=== PATIENT | male | born 1980 | race Caucasian/White ===

== ENCOUNTER 2017-08-11 17:35 | Emergency (ER) | payer OTHER, SELFPAY ==
--- NOTE | 2017-08-11 19:25 | XR_ITS ---
XR knee RT 3V HISTORY: ITS.REASON: KNEE PAIN ORDERING PHYSICIAN: Mary Berrios PATIENT AGE: 37 years COMPARISON: None FINDINGS: No fracture or dislocation. No lytic or blastic change. Normal mineralization. There is minimal spurring along the medial compartment. The joint spaces are well-preserved. No other significant findings IMPRESSION: Minimal spur along the medial compartment suggesting minimal osteoarthritic change
[2017-08-11 19:27] VITALS: BP 137/79; PULSE 85; RESP 18; TEMP 37.3; O2SAT 98; BMI 32.1
--- NOTE | 2017-08-11 19:33 | HMH.EDUTC ---
[facility] [place] Clinical Impression: Knee pain Clinical Impression: (Ruled Out): Knee pain, acute Disposition: Home, Self-Care Condition on Discharge: Good Instructions: How to Use Crutches, DI for Chronic Pain -- Adult, DI for Knee Pain Additional Instructions: *weight bearing as tolerated *RICE, Rest the extremity, Ice 15-20 minutes 3-4 times daily, Compress- wear the getachew wrap as discussed as much as possible to help reduce swelling and pain, Elevate the extremity when at rest *Getachew wrap is for support and help control swelling, use it except in the shower. Be sure that is not to tight but not to loose either *Elevate when resting *Ibuprofen 600-800mg every 6-8 hours as needed for pain an inflammation. If need something more can take Tylenol in between doses of Ibuprofen to help Immediately follow up for new or worsening of symptoms, or no noticeable improvement over the next 3-5 days Prescriptions: Ibuprofen [Ibuprofen 800mg Tab] 800 mg PO Q6HP PRN #20 tab PRN Reason: Moderate Pain Referrals: Robert Rae MD [Primary Care Provider] - Alexander Santos MD [Staff Physician] - Tunde King MD [Physician] - Time of Disposition: 20:08 Medical Decision Making Vital Signs: 08/11/17 19:27 Temperature 99.2 F Temperature Source Temporal Artery Scan Pulse Rate [Left Brachial] 85 Respiratory Rate 18 Blood Pressure [Left Arm] 137/79 Blood Pressure Mean [Left Arm] 98 Blood Pressure Source [Left Arm] Automatic Cuff Blood Pressure Position [Left Arm] Sitting 02 Sat by Pulse Oximetry 98 Oxygen Delivery Method Room Air Orders (Tests/Meds): ORDERS Category Date Time Status Knee XR right 3 views [XR knee RT 3V] Stat Exams 08/11/17 19:25 Taken - Radiology Data #1 Image Reviewed: Yes I reviewed the patient's radiology image Preliminary Findings: No Fracture Seen no fracture seen will have patient follow up with family doctor/orthopedics tomorrow - Myke Inquiry Pt receiving controlled substance: No Myke was queried for this patient: No [facility] [place] - General Stated complaint: PAIN RIGHT KNEE Mode of Arrival: Ambulatory Source of Information: Patient Limitations: No Limitations Description of Symptoms (Recalled from Triage Doc. 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 and he felt something pop and he began to have pain and swelling in the right knee States that pain has continued to get worse so he thought he better come in and get an xray - Related Data Previous Rx's Medication Instructions Recorded Ibuprofen [Ibuprofen 800mg Tab] 800 mg PO Q6HP PRN #20 tab 08/11/17 Allergies Allergy/AdvReac Type Severity Reaction Status Date / Time cephalexin [CEPHALEXIN] Allergy Mild Unverified 07/20/17 14:38 penicillin G [PENICILLIN G] Allergy Mild Unverified 07/20/17 14:38 ranitidine [RANITIDINE] Allergy Unknown Unverified 07/20/17 14:38 - Worker's Comp Is this a Worker's Comp case?: No [facility] History I have reviewed the patient's past medical history: Yes Medical History: Denies:: Cancer, Diabetes Mellitus Type 1, Diabetes Mellitus Type 2, MRSA Amputation: No Fractures: No - *Social History Smoking Status: Current every day smoker Tobacco Type: cigarettes Alcohol Intake: never - Psychiatric History Expresses thoughts of harming self/others: None Suicide Plan Description: No Plan ROS Obtained: Yes All systems reviewed & no additional complaints - Musculoskeletal Musculoskeletal: Reports other (Pain and swe
== END 2017-08-11 20:23 | disposition home or self-care (01) ==
PROVIDERS: Emergency Provider Nurse Practitioner; Family Provider Emergency Medicine; PCP Emergency Medicine
DX: M25.561 Pain in right knee (principal); X50.0XXA Overexertion from strenuous movement or load, initial encounter; F17.210 Nicotine dependence, cigarettes, uncomplicated; Z88.0 Allergy status to penicillin; Z88.8 Allergy status to other drugs, medicaments and biological substances
CPT/HCPCS: 73562; 99202; 99282

== ENCOUNTER 2020-05-06 12:56 | Emergency (ER) | payer BC, SELFPAY ==
--- NOTE | 2020-05-06 14:08 | XR_ITS ---
PROCEDURE: XR FOOT RT MIN 3V CLINICAL INDICATION: INJURY Pain COMPARISON: No exams were available for comparison FINDINGS: No fracture or dislocation. No lytic or blastic change. There is normal mineralization. There is spurring along neck of the talus and at the distal tibia Other findings:None. IMPRESSION: No acute findings. Dictated by: Paul Pearson MD 05/06/2020 14:30 Paul Pearson MD in [place] 05/06/2020 14:30
--- NOTE | 2020-05-06 14:22 | XR_ITS ---
PROCEDURE: XR ANKLE RT MIN 3V CLINICAL INDICATION: INJURY PAIN LAT SIDE OF FOOT AND ANKLE Pain COMPARISON: CR XR FOOT RT MIN 3V from 05/06/2020 FINDINGS: No fracture or dislocation. No lytic or blastic change. There is normal mineralization. There is an area of exostosis at the neck of the talus with bony spurring also at the anterior distal tibia. Other findings:None. IMPRESSION: No acute findings. Dictated by: Paul Pearson MD 05/06/2020 14:43 Paul Pearson MD in [place] 05/06/2020 14:43
[2020-05-06 14:33] VITALS: BP 141/74; PULSE 74; RESP 14; TEMP 36.9; O2SAT 98; BMI 42.1
--- NOTE | 2020-05-06 14:33 | HMH.EDUTC ---
[facility] [place] Disposition Clinical Impression: Ankle pain Qualifiers: Chronicity: acute Laterality: right Qualified Code(s): M25.571 - Pain in right ankle and joints of right foot Disposition: Home, Self-Care Condition on Discharge: Good Instructions: Tendinopathy, DI for Ankle Pain Additional Instructions: Rest the extremity, Wear the jluis wrap for compression, Elevate the extremity as tolerated while you are resting. Take ibuprofen for pain. I sent in a prescription to your pharmacy. Follow up with Dr. Louie. I put in a referral but you need to call her office and schedule an appointment. Follow up with your regular doctor. GO TO THE ER FOR ANY WORSENING SYMPTOMS Prescriptions: Ibuprofen [Ibuprofen 600mg Tablet] 600 mg PO Q6HP PRN #30 tab PRN Reason: Mild Pain Transmission Status: Received by [facility] Referrals: Robert Rae MD [Primary Care Provider] - Erika Louie DPM [Staff Physician] - Forms: Work/School Release Time of Disposition: 14:44 Medical Decision Making - Medical Records Medical records reviewed: No: I reviewed the patient's medical records. - Myke Inquiry Pt receiving controlled substance: No Vital Signs: 05/06/20 14:33 05/06/20 14:52 Temperature 98.4 F 98.4 F Temperature Source Oral Pulse Rate 74 Pulse Rate [Right Brachial] 74 Respiratory Rate 14 14 Blood Pressure 141/74 H Blood Pressure [Right Arm] 141/74 H Blood Pressure Mean [Right Arm] 96 Blood Pressure Source [Right Arm] Automatic Cuff Blood Pressure Position [Right Arm] Sitting 02 Sat by Pulse Oximetry 98 Oxygen Delivery Method Room Air - Lab Data Lab results reviewed: Yes: I reviewed the patient's lab results. [facility] [place] HPI - General Stated complaint: AO [id number] right ankle pain,home accident Time Seen by Provider: 05/06/20 14:15 - History of Present Illness Provider Complaint: He states that he twisted his ankle about a month ago and its still painful and sore when he is walking on it. - Related Data Previous Rx's Medication Instructions Recorded Ibuprofen [Ibuprofen 600mg 600 mg PO Q6HP PRN #30 tab 05/06/20 Tablet] Allergies Allergy/AdvReac Type Severity Reaction Status Date / Time cephalexin [CEPHALEXIN] Allergy Mild Verified 05/07/20 10:12 penicillin G [PENICILLIN G] Allergy Mild Verified 05/07/20 10:12 ranitidine [RANITIDINE] Allergy Unknown Verified 05/07/20 10:12 acetaminophen [From Percocet] Allergy Verified 05/07/20 10:12 amoxicillin Allergy Verified 05/07/20 10:12 oxycodone [From Percocet] Allergy Verified 05/07/20 10:12 [facility] History - Hepatitis A Screen Attestation statement:: This patient has been screened for Hepatitis A risk factors. I have reviewed the patient's past medical history: Yes Medical History: Denies:: Cancer, Diabetes Mellitus Type 1, Diabetes Mellitus Type 2, Internal Pacemaker, MRSA Other Surgeries: No: Pacemaker Amputation: No Fractures: No - Social History Smoking Status: Current every day smoker Tobacco Type: cigarettes # Packs/Day (cigarettes): 1 Alcohol Intake: never Alcohol Intake Frequency:: holidays/special occasions only Occupational Status: other Housing: house Household Members: spouse ROS Obtained: Yes All systems reviewed & no additional complaints - Musculoskeletal Musculoskeletal: Reports as per HPI - Integumentary/Breasts Skin/Breast: Denies redness, Denies rash, Denies wounds Physical Exam - General General appearance: alert, in no apparent distress - Head Head exam: atraumatic, normocephalic, normal inspection - Eye Eye exam: Present: normal appearance, PERRL, EOMI - ENT ENT exam: Present: normal exam, normal oropharynx, mucous membranes moist, TM's normal bilaterally, normal external ear exam - Neck Neck exam: Present: normal inspection, full ROM, trachea midline. Absent: meningismus, lymphadenopathy - Chest Chest inspection: Present: normal inspection, s
[2020-05-06 14:52] VITALS: BP 141/74; PULSE 74; RESP 14; TEMP 36.9; O2SAT 98
== END 2020-05-06 14:56 | disposition home or self-care (01) ==
PROVIDERS: Emergency Provider Nurse Practitioner Family; PCP Emergency Medicine
DX: M25.571 Pain in right ankle and joints of right foot (principal); X50.1XXA Overexertion from prolonged static or awkward postures, initial encounter; Y92.019 Unspecified place in single-family (private) house as the place of occurrence of the external cause; Z88.0 Allergy status to penicillin; F17.210 Nicotine dependence, cigarettes, uncomplicated
CPT/HCPCS: 73610; 73630; 99201

== ENCOUNTER → 2020-05-14 09:07 | Outpatient (CLI) | payer BC, SELFPAY ==
--- NOTE | 2020-05-14 09:07 | MR_ITS ---
PROCEDURE: MR ANKLE RT WO/W CON CLINICAL INDICATION: foot pain, ankle pain/strain [id number] AGO TWISTED ANKLE. LATERAL SIDED ANKLE PAIN WITH SWELLING. PAIN WITH FLEXION AND EXTESION. 20ML PROHANCE GIVEN. LOT:[id number] EXP: JUL 2022 > PRIOR X-RAY 05-06-20 COMPARISON: CR XR ANKLE RT MIN 3V from 05/06/2020 TECHNIQUE: Routine multiplanar multi echo sequences are performed without gadolinium enhancement. FINDINGS: The distal aspect the syndesmosis of the tibia/fibula appears intact. The anterior tibiofibular ligament is thinned with increased T2 signal around the ligament suggesting sprain or partial tear. Posterior tibiofibular ligament appears intact. The ATFL is not identified in its entirety consistent with tear of the ATFL. The PT FL has an unremarkable appearance. There is increased T2 signal involving the medial aspect of the talus at the neck of the talus. There is some heterogeneous increased signal intensity of the deltoid ligament suggesting a partial tear or sprain. Unfortunately, the sagittal PD images demonstrates a moderate amount of motion artifact. There is increased T2 signal involving the distal aspect of the peroneal longus tendon at the level of the distal calcaneus with some fluid around the tendon at this region. Tendinopathy//tendinitis or partial tear is considered. The posterior tibialis, flexor hallucis longus, and flexor digitorum longus and Achilles tendon have an unremarkable appearance. The anterior extensor tendons are grossly unremarkable with moderate degree of motion artifact involving them on the sagittal images. There is a prominent os trigonum with fluid around the os trigonum. No edema however of this ossicle is evident. There is a small ankle joint effusion. IMPRESSION: 1. Tear of the ATFL. 2. Partial tear versus sprain of the anterior tibiofibular ligament and deltoid ligament 3. Increased T2 signal of the peroneus longus tendon distally which may be due to tendinopathy/tendinosis/tendinitis versus partial tear 4. Bone marrow edema of the neck of the talus with small ankle joint effusion. 5. There is fluid around a prominent os trigonum but no edema of the os trigonum. Bursitis here is considered. Dictated by: Paul Pearson MD 05/20/2020 09:21 Paul Pearson MD in [place] 05/20/2020 09:21
== END ==
PROVIDERS: PCP Emergency Medicine; Visit Provider Podiatrist
DX: S92.131A Displaced fracture of posterior process of right talus, initial encounter for closed fracture (principal); S93.401A Sprain of unspecified ligament of right ankle, initial encounter; M25.371 Other instability, right ankle
CPT/HCPCS: 73723; A9576

== ENCOUNTER → 2020-05-23 11:57 | Outpatient (CLI) | payer BC, SELFPAY ==
--- NOTE | 2020-05-23 12:12 | XR_ITS ---
PROCEDURE: XR CHEST 2V CLINICAL HISTORY: COUGH,PREOPERATIVE COMPARISON: No exams were available for comparison FINDINGS: The cardiomediastinal silhouette and pulmonary vascularity are within normal limits. The lungs are clear without infiltrates, suspicious nodules, or pleural effusions. Calcified granuloma right lung base medially. No acute bony findings. IMPRESSION: No acute findings. Dictated by: Paul Pearson MD 05/23/2020 14:26 Paul Pearson MD in [place] 05/23/2020 14:26
[2020-05-23 12:16] LABS: Basophils % 0.3 % (0.1-2.0); Eosinophils # 0.2 K/mm3 (0.0-0.4); Eosinophils % 1.7 % (0.1-12.0); Hematocrit 51.9 % (42.0-52.0); Hemoglobin 17.3 g/dL (14.1-18.0); Lymphocytes # 2.3 K/mm3 (0.7-4.5); Lymphocytes % 26.4 % (10-50); Mean Corpuscular HGB Conc 33.4 g/dL (31.8-35.4); Mean Platelet Volume 7.8 fl (7.4-10.4); Monocytes # 0.5 K/mm3 (0.1-1.0); Monocytes % 5.5 % (1.7-9.3); Neutrophils # 5.6 K/mm3 (1.8-7.8); Platelet Count 335 K/mm3 (142-424); Red Blood Count 5.96 M/mm3 (4.60-6.20); Red Cell Distribution Width 12.9 % (11.5-17.5); White Blood Count 8.6 K/mm3 (4.8-10.8)
[2020-05-23 13:50] LABS: Chloride 103 mmol/L (98-107); Potassium 3.8 mmoL/L (3.5-5.1); Sodium 140 mmol/L (136-145)
[2020-05-23 13:52] LABS: Alanine Aminotransferase 52 U/L (12-78); Alkaline Phosphatase 72 U/L (38-126); Anion Gap 13.8 mEq/L (5-15); Aspartate Amino Transferase 32 U/L (17-59); Bilirubin,Total 0.9 mg/dl (0.2-1.3); Blood Urea Nitrogen 12 mg/dl (9-20); Carbon Dioxide 27 mmol/L (22.0-30.0); Estimated Glomerular Filt Rate 94 ml/min (>60); GFR (African American) 114 ML/MIN (>60)
[2020-05-23 13:53] LABS: Albumin Level 4.8 g/dl (3.5-5.0); Calcium 9.4 mg/dl (8.4-10.2); Globulin 2.4 g/dL (1.3-3.2); Glucose 133 mg/dl (74-100); Total Protein,Serum 7.2 g/dl (6.3-8.2)
--- NOTE | 2020-05-23 15:03 | ECG_ITS ---
APPROVED REPORT Exam: Resting ECG HR:75 bpm ECG Measurements Heart Rate 75 AXES UT 126 P 31 QRSd 90 QRS -30 QT 378 T 53 QTc 422 Conclusion Normal sinus rhythm Left axis deviation Abnormal ECG Electronically signed by : Delfin Le, 05/24/2020 14:33:40
[2020-05-24 13:38] LABS: Hemoglobin A1C 4.5 % (4.0-6.0)
== END ==
PROVIDERS: Visit Provider Podiatrist
DX: Z01.818 Encounter for other preprocedural examination (principal); M79.671 Pain in right foot
CPT/HCPCS: 36415; 71046; 80053; 83036; 85025; 93005

== ENCOUNTER → 2020-05-27 11:31 | Outpatient (CLI) | payer BC, SELFPAY ==
[2020-05-27 13:22] LABS: Coronavirus 19 IgG Antibody Negative (Negative); Coronavirus 19 IgM Antibody Negative (Negative)
[2020-05-27 14:06] LABS: Hemoglobin A1C 4.5 % (4.0-6.0)
[2020-06-28 18:08] LABS: Cotinine 324.6; Nicotine 27.7
== END ==
PROVIDERS: Podiatrist; Visit Provider Nurse Practitioner Family
DX: Z01.818 Encounter for other preprocedural examination (principal); R73.09 Other abnormal glucose; M25.571 Pain in right ankle and joints of right foot
CPT/HCPCS: 36415; 80323; 83036; 86328

== ENCOUNTER 2020-05-29 06:00 | Day surgery (SDC) | payer BC, SELFPAY ==
[2020-05-27 15:40] VITALS: BMI 30.2
[2020-05-29] VITALS (16 sets, daily range): BP systolic 142–186; BP diastolic 80–103; PULSE 66–79; RESP 12–26; TEMP 36.4–36.8; O2SAT 93–100
--- NOTE | 2020-05-29 07:13 | HMH.OPNOTE ---
Date of procedure: 05/29/20 Pre-op Diagnosis:: 1. Right peroneal tendon tear 2. Right ankle instability 3. Closed arredondo's fracture of right foot 4. Right deltoid ligament tear 5. Right high ankle sprain, syndemosis sprain 6. Right ankle ATFL tear 7. Right ankle synovitis 8. Right talus OCD Post-op Diagnosis:: Same Procedure performed:: 1. Right peroneus brevis tendon debridement and repair 2. Right peroneus longus tendon debridement and repair 3. Right medial arthrotomy, with direct open repair deltoid ligament 4. Right repair anterior talofibular ligament (modified Brostrum ligament stabilization) 5. Right syndesmosis open reduction internal fixation 6. Right ankle synovectomy 7. Right microfracture/chondral drill talus OCD 8. Application of graft 9. Application of posterior splint Surgeon:: Erika Louie DPM Clock Smith(s):: Monserrat Arredondo FILING WRITER:: Delfin Reddy Anesthesia: GETA, regional (right popliteal block) Estimated blood loss (mL): 20 Clinical Note:: The patient has tried conservative care including: ice, elevation, modification of shoe gear, modification of activity, [id number] ankle brace, bracing/strapping, Getachew bandage, stretching/therapy. Patient unable to tolerate more physical therapy due to pain and guarding. Patient unable to fully tolerate a full physical exam secondary to pain and guarding. Symptoms are not improving and have worsened over the last few weeks/months. 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 He states there is no light duty option . After a long discussion with the patient in regards to the conservative versus surgical treatment for the tendon tear/deformity, the patient has elected to proceed with surgery because they have failed conservative treatment and continue to have pain and worsening symptoms affecting daily activities. The patient has been instructed on the planned procedure, all risk versus benefits of the procedure discussed. These include but are not limited to: bleeding, infection, nerve and blood vessel damage, need for further surgery, delay in healing of soft tissue or bone, tendon re-rupture, failure of bones to heal, non-union, mal-union, failure of the implant, prolonged pain and recovery, CPRS/RSD, DVT and anesthetic complications. No guarantees were given. All questions fully answered. The patient verbalized understanding and agreed to proceed with surgery. Written consent was obtained. We discussed how smoking can affect healing postoperatively. Recommend smoking cessation, see below. Discussed DVT prophylaxis, patient is lower risk. Due to immobilization would recommend aspirin 81 mg postoperatively while immobilized. Necessary labs and pre-op testing ordered: CBC, CMP, EKG, CXR. Will need Covid test. Medical clearance. PCP is Dr. Rae. Patient has crutches. Recommend RKS. e-Rx for [place] 7.5mg # 30, Zofran, Motrin given. Operative findings:: Right ankle synovitis noted with ankle instability. There was a partial tear of the deltoid ligament. There was an osteochondral defect noted to the medial talar dome. Fluid in the subtalar joint, ankle joint and around the peroneal tendons. Syndesmosis instability. Complete tear of the anterior talofibular ligament. CFL attenuated but intact. Peroneus brevis low-lying muscle belly with flattening and longitudinal tear of the brevis. Peroneus longus had a thick bulbous area inferior to the lateral malleolus consistent with old injury, synovitis. Operative note:: On this date and time patient was deemed an appropriate surgical candidate. Pre-op regional popliteal and saphenous nerve block performed by anesthesia. With informed consent signed, the patient was taken to the operating theater. The patient was positioned supine. General anesthesia was induced. Tourniquet was applied to the right thigh. The right lower extr
--- NOTE | 2020-05-29 09:17 | XR_ITS ---
PROCEDURE: XR ANKLE RT 2V CLINICAL INDICATION: TENDON REPAIR IN OR COMPARISON: No exams were available for comparison FINDINGS: Fluoro time: 29 seconds. Two images are submitted status post syndesmotic repair of the distal tib fib with fibular bone plate, tibial button, and lateral malleolar anchor screw. IMPRESSION: Good alignment status post syndesmotic repair Dictated by: aPul Pearson MD 05/29/2020 11:55 Paul Pearson MD in [place] 05/29/2020 11:55
--- NOTE | 2020-05-29 10:09 | P.PN_ITS ---
[facility] Anesthesia Checklist - Patient Identification Patient Identification: Arm Band, Verbal (Name & ) - Structural Data Admitted From: Home Planned Operative Procedure/s: ita Consent for Planned Operative Procedure(s) Verified: Yes Verified Documents: History and Physical - NPO Status Verified Time NPO: 00:00 - Chart Verification Results Verified: CBC, BMP - Additional verifications Patient : No Anesthesia Reactions: No Hx Blood Transfusions: No Blood Transfusion Reaction: No Cephalosporin Allergy: No Previous Colonoscopy: No - Cardiovascular Assessment Heart Sounds: S1 & S2 Pulse Strength: Baseline Pulse Rhythm: Regular Peripheral Edema: No - Airway Assessment C-Spine Mobility Assessed: Yes TMJ Mobility Assessed: Yes Dentition: Good Dentition - Neurological Assessment Level of Consciousness: Awake, Alert, Appropriate Hx Seizures: No Numbness or tingling in extremities: No - Anesthesia Plan Anesthesia Risk discussed: Yes ASA Class: II Anesthesia Type: General w/block [facility] History I have reviewed the patient's past medical history: Yes Medical History: Reports:: Gastroesophageal Reflux Disease(GERD) Denies:: Cancer, Diabetes Mellitus Type 1, Diabetes Mellitus Type 2, Internal Pacemaker, MRSA, Seizures *Have you ever received a pneumonia vaccine?: No *Have you received a flu vaccine this season?: No Other Medical History: Reports: Sinus Problems. Denies: Blood Transfusion Reaction Anesthesia experience/problems:: none Laterality Cases: Right: Arthroscopy Shoulder Other Surgeries: Yes: No Previous Surgery. No: Pacemaker Amputation: No Fractures: Yes (R ankle) - *Social History Last grade of school completed: High school graduate Smoking Status: Current every day smoker Tobacco Type: cigarettes # Packs/Day (cigarettes): 1 Alcohol Intake: current Alcohol Intake Frequency:: holidays/special occasions only Substance Use Type: denies use *Occupational Status:: employed Housing: house Household Members: spouse, family *Travel in the last 8 weeks: None Family Hx:: Diabetes, Cancer, Hypertension, Hyperlipidemia, Asthma
--- NOTE | 2020-05-29 10:11 | P.PN_ITS ---
[facility] Anesthesia Record Part I Intake, IV Amount: 1,200 Estimated blood loss (mL): 10 Urine output (mL): 0 Blood Products used (#): none Blood Pressure: 148/93 SaO2: 93 Pulse Rate: 72 Respiratory Rate: 18 Temperature: 97.5 F Patient is:: Drowsy, Mask O2, Stable Stable to PACU at:: 10:07
--- NOTE | 2020-05-29 10:30 | XR_ITS ---
PROCEDURE: XR ANKLE RT MIN 3V CLINICAL INDICATION: Post op ankle stabilization COMPARISON: CR XR ANKLE RT MIN 3V from 05/06/2020 MR MR ANKLE RT WO/W CON from 05/14/2020 FINDINGS: There postsurgical changes with syndesmotic repair with a bone plate at the distal fibula translucent fixator into the distal tibia with a metallic button medially at the distal tibia. Small anchor screws present at the distal fibula. There is good alignment. Posterior splint is in place. There is an extra ossicle along the talar neck anteriorly as well as a prominent os trigonum. IMPRESSION: Good alignment status post syndesmotic repair Dictated by: Paul Pearson MD 05/29/2020 11:55 Paul Pearson MD in [place] 05/29/2020 11:55
--- NOTE | 2020-05-29 15:23 | HMH.ANESII ---
[facility] Anesthesia Record Part II Discharge Time: 10:37 Destination: Surgical Day Care (OP Surgery) PACU nurse assessment reviewed?: Yes Patient Condition:: Good Anesthesia Complications:: None Swallowing reflex intact?: Yes Cyanosis?: No Blood Pressure: 155/86 Pulse Rate: 77 Temperature: 98.3 F Mental Status: Alert & Oriented Pain level:: 0 Nausea and/or vomitting:: None Intake, IV Amount: 50
== END 2020-05-29 12:04 | disposition home or self-care (01) ==
LOC: OR 06:01
PROVIDERS: PCP Nurse Practitioner Family; Visit Provider Podiatrist
PROC: (CPT 27695; principal; 2020-05-29 07:30)
DX: S86.311A Strain of muscle(s) and tendon(s) of peroneal muscle group at lower leg level, right leg, initial encounter (principal); M25.371 Other instability, right ankle; S93.491A Sprain of other ligament of right ankle, initial encounter; S92.144A Nondisplaced dome fracture of right talus, initial encounter for closed fracture; Z88.0 Allergy status to penicillin; Z88.8 Allergy status to other drugs, medicaments and biological substances; Z79.899 Other long term (current) drug therapy
CPT/HCPCS: 27695; 27625; C5271; 73600; 73610; 76000; 96374; C1713; C1762; C1776; J2405; Q4211

== ENCOUNTER 2020-09-26 15:30 | Outpatient (RCR) | payer BC, SELFPAY ==
--- NOTE | 2020-07-24 11:15 | HMH.PTOPEV ---
PT Outpatient Evaluation Rehab PT Outpatient Evaluation Start: 07/24/20 11:04 Freq: Status: Active Protocol: Document 07/24/20 11:04 KALPANA (Rec: 07/24/20 11:15 KALPANA [id number]) Electronically Signed By Juma Rogers, PT 07/24/20 11:04 Outpatient Therapy Subjective History Subjective History Pt presents s/p R ankle peroneal tendon repair on . Pt reports h/o R ankle instability w/severe sprain in . Pt reports improved R ankle instability since sx, however, reports lingering post-op stiffness, swelling, weakness, and some N &T in toes. Chief Complaint Pain,Stiff,Swelling, Paresthesia,Weakness Symptom Type Ache,Dull,Numbness,Tingling Symptoms Relieved By Rest/Positioning,Heat,Ice Symptoms Aggravated By Standing,Physical Activity, Walking Prior Functional Limitations Housework,Standing,Walking, Stairs Current Functional Limitations Housework,Walking,Stairs Symptom Description Constant but Variable Level of pain today (0-10) 1 Pain scale - at its best (0-10) 1 Pain scale - at its worst (0-10) 5 Ankle/Foot Eval Gait Observation General Gait Pattern Observation Antalgic Gait,Wide Based Gait, Decrease Weight Bear (R) Assistive Device Ambulation Assistive Device Axillary Crutches Palpation Tenderness right Ankle/Foot Palpation Findings Tenderness Ankle/Foot Palpation Overall Comment 2-3/4 peroneal incision ROM Ankle/Foot Dorsiflexion w/Knee Extended 0 Active Range Motion (degrees) Ankle/Foot Plantar Flexion Active Range 0-38 of Motion (degrees) Ankle/Foot Eversion Active Range of 0-10 Motion (degrees) Ankle/Foot Inversion Active Range of 0-35 Motion (degrees) Ankle/Foot ROM Limitations Soft Tissue Tightness,Muscle Weakness MMT Ankle Dorsiflexion Strength Grade 4- Good- Ankle Plantarflexion Strength Grade 4- Good- Foot Eversion Strength Grade 3+ Fair+ Foot Inversion Strength Grade 3+ Fair+ Outpatient Therapy Assessment Impairments Problems/Impairmments Palpation Tenderness,Impaired Range of Motion,Impaired Strength,Impaired Gait Pattern ,Impaired Walking,Impaired Standing,Impaired Household Care,Impaired Stair Climbing, Impaired Work Act
--- NOTE | 2020-08-28 16:15 | HMH.RHREAS ---
Rehab Reassessment Rehab OP Re-assessment Start: 08/28/20 15:09 Freq: Status: Active Protocol: Document 08/28/20 15:09 KALPANA (Rec: 08/28/20 16:15 KALPANA [id number]) Electronically Signed By Juma Rogers, PT 08/28/20 15:09 Rehab Re-assessment Subjective Subjective PT REPORTS 3-4/10 R ANKLE ON VAS W/ACTIVITY, AND FEELS 30- 40% BETTER OVERALL SINCE I EVAL Objective Objective Notes AROM: R ANKLE DF 0-5, PF 0-40, INV 0-40, EVR 0-10, PROM: R DF 0-8 MMT: R ANKLE DF 4-4+/5, PF 4-4 +/5, INV 4+/5, EVR 4/5 TTP: R ANKLE PERONEAL INSERTION 1-2/4 Assessment Progress Assessment Progressing as Expected Assessment Notes PT W/IMPROVED ROM, STRENGTH, AND TTP Patient goals met STG'S 03/09 LTG'S 10/10 Goals Not Met LTG'S 03/12 Plan Plan PT TO CONT. W/SKILLED P.T. TO MAKE FURTHER IMPROVEMENTS IN AROM, STRENGTH, AND TTP TO ALLOW FOR OPTIMAL FUNCTION Frequency of Therapy 2-3X/WK Duration of therapy 2-4WKS Time and Billing Re-Eval Time 15 Re-Eval Billing Units 1 PHYSICIAN CERTIFICATION: I certify the specified therapy services for Baljinder Moser are required, authorized, and reviewed every 30 days.
== END 2020-09-26 15:35 | disposition home or self-care (01) ==
LOC: PT 15:30
PROVIDERS: PCP Nurse Practitioner Family; Visit Provider Podiatrist
DX: M25.371 Other instability, right ankle (principal); M25.571 Pain in right ankle and joints of right foot; S86.311A Strain of muscle(s) and tendon(s) of peroneal muscle group at lower leg level, right leg, initial encounter; Z98.890 Other specified postprocedural states
CPT/HCPCS: 97010; 97110; 97112; 97116; 97140; 97163; 97164

== ENCOUNTER 2022-05-25 19:34 | Emergency (ER) | payer SELFPAY ==
[2022-05-25 19:35] VITALS: BP 140/98; PULSE 84; RESP 18; TEMP 36.8; O2SAT 98; BMI 32.5
--- NOTE | 2022-05-25 20:34 | [facility].EDGENADL ---
Discharge Plan Disposition Patient Disposition: Home, Self-Care Condition: Good Prescriptions Prescriptions: New sulfamethoxazole-trimethoprim 800-160 mg tablet 1 tab PO Q12H Qty: 20 0RF No Action omeprazole 20 mg Capsule,Delayed Release(Dr/Ec) 20 mg PO DAILY PRN (Reason: gerd) Referrals Follow up/Referrals: Robert Rae MD [Primary Care Provider] - See instructions Activity Restrictions/Add. Instructions Additional Instructions/Restrictions: You have been evaluated for abscess to the buttocks. Abscess has been drained. Please take antibiotics as prescribed. Keep the area clean and dry. Okay to use triple antibiotic ointment. Follow-up with your primary care doctor for wound recheck in 1 to 2 days. Return to the emergency department at once for any new or worsening symptoms, pain, fever, other concerns Clinical Impressions Clinical Impression: Abscess Instructions Patient Instructions: DI for Skin Abscess Discharge ED Provider: Opal Mai Adult HPI General Chief complaint: Skin/Abscess/Foreign Body Stated complaint: Boil on Left butt Time Seen by Provider: 05/25/22 19:37 Mode of Arrival: Ambulatory Source of Information: Patient and Significant Other Limitations: No Limitations Description of Symptoms (Recalled from ER Triage Doc. by RN): Patient c/o boil to left buttock that began appearing two weeks ago. States that the area is warm to touch and tender. Patient reports a history of boils and states that his s/o has been attempting to pop it for two weeks but has been unable to. History of Present Illness HPI narrative: 42-year-old male presenting to the emergency department with an abscess to his left buttock. This 1 started about 3 days ago. It was a small red area. Now it is grown in size, tender to touch, swollen. Tender to touch. Occasional throbbing pain at rest. No pain with defecation. No wounds closer to the rectum. He gets boils on his backside frequently. This 1 seems to be worse. Denies fevers, chills, nausea, vomiting. No recent antibiotic use. Most recent tetanus shot was about 3 years ago. Related Data Home Medications Medication Instructions Recorded Confirmed omeprazole 20 mg capsule,delayed 20 mg PO DAILY PRN gerd 05/25/22 05/25/22 release Previous Rx's Medication Instructions Recorded sulfamethoxazole 800 1 tab PO Q12H #20 tabs 05/25/22 mg-trimethoprim 160 mg tablet Allergies Allergy/AdvReac Type Severity Reaction Status Date / Time cephalexin [CEPHALEXIN] Allergy Mild Verified 10/22/20 11:23 penicillin G [PENICILLIN G] Allergy Mild Verified 10/22/20 11:23 amoxicillin Allergy Verified 10/22/20 11:23 [facility] Medical History (Updated 05/25/22 @ 20:42 by Opal Mai DO) GERD (gastroesophageal reflux disease) Social History Smoking Status: Current every day smoker tobacco type: cigarettes packs per day: 1 second hand exposure: Yes alcohol intake: former substance use type: denies use current occupational status: employed Travel in the last 8 weeks: None household members: spouse and family housing: house 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 current occupational exposures/hazards: No caffeine: Yes ROS Obtained: Yes All systems reviewed & no additional complaints except as documented Constitutional Constitutional: Denies body ache, Denies chills, Denies fever(s) and Denies headache(s) ENT Ears, Nose, Mouth, and Throat: Denies dizziness and Denies headache(s) Cardiovascular Cardiovascular: Denies palpitations and Denies rapid heart rate Gastrointestinal Gastrointestingal: Denies abdominal pain, nausea or vomiting Genitourinary Male Genitourinary: Denies flank pain Integumentary/Breasts Skin/Breast: Reports redness, Reports furuncle and Reports skin pain Neurologic Neurologic: Denies dizziness and Denies headache(s) Endocrine Endocrine: Denies palpitations Physical Exam General Gen
[2022-05-25 21:12] VITALS: BP 152/91; PULSE 70; RESP 18; TEMP 36.6; O2SAT 99
== END 2022-05-25 21:18 | disposition home or self-care (01) ==
PROVIDERS: Emergency Provider Emergency Medicine; PCP Emergency Medicine
DX: L02.31 Cutaneous abscess of buttock (principal); K21.9 Gastro-esophageal reflux disease without esophagitis; F17.210 Nicotine dependence, cigarettes, uncomplicated; Z79.899 Other long term (current) drug therapy; Z88.0 Allergy status to penicillin; Z88.1 Allergy status to other antibiotic agents; Z88.3 Allergy status to other anti-infective agents; Z88.8 Allergy status to other drugs, medicaments and biological substances
CPT/HCPCS: 10060; 99283